=== PATIENT | female | born 1985 | race Caucasian/White ===

== ENCOUNTER → 2017-07-08 | Outpatient (REF) | payer OTHER ==
[~2017-07-08] MED LIST: ACET50TA PO; MUPI2OI TOP; SENN8.6T7 PO; [UNRECOGNIZED DRUG - CODE] PO; [UNRECOGNIZED DRUG - CODE] PO
== END ==
LOC: M LAB REF 16:54
PROVIDERS: ATTEND Obstetrics & Gynecology
DX: Z12.4 Encounter for screening for malignant neoplasm of cervix (principal); R87.612 Low grade squamous intraepithelial lesion on cytologic smear of cervix (LGSIL)

== ENCOUNTER → 2017-10-08 | Outpatient (CLI) | payer OTHER | LOC: M RAD 09:47 | DX: E04.1 Nontoxic single thyroid nodule (principal) | CPT/HCPCS: 76536 ==

== ENCOUNTER → 2018-03-28 | Outpatient (REF) | payer OTHER | LOC: M SFHCLERA 10:27 | DX: J00 Acute nasopharyngitis [common cold] (principal) ==

== ENCOUNTER → 2018-07-13 | Outpatient (REF) | payer OTHER ==
[2018-07-18 14:10] LABS: HPV LOW VOL RFLX Negative (Negative)
== END ==
LOC: M LAB REF 18:27
DX: Z12.4 Encounter for screening for malignant neoplasm of cervix (principal)

== ENCOUNTER → 2018-10-19 | Outpatient (REF) | payer OTHER | LOC: M LAB REF 18:20 | PROVIDERS: ATTEND Physician Assistant | DX: L05.01 Pilonidal cyst with abscess (principal) ==

== ENCOUNTER → 2019-02-09 | Outpatient (CLI) | payer OTHER ==
[~2019-02-09] MED LIST changes: -ACET50TA PO; +MAPA500T17 PO; +MUPI1OIN2 TOP; -MUPI2OI TOP
[2019-02-09 07:05] LABS: THYROID STIMULATING HORMONE 1.02 uIU/ML (0.358-3.740)
[2019-02-09 09:57] LABS: PROGESTERONE 29.13 NG/ML
== END ==
LOC: M LAB 06:19
PROVIDERS: ATTEND Obstetrics & Gynecology Reproductive Endocrinology
DX: E28.9 Ovarian dysfunction, unspecified (principal)

== ENCOUNTER → 2019-02-15 | Outpatient (CLI) | payer OTHER ==
[2019-02-15 10:12] LABS: HCG, SERUM QUANTITATIVE < 1.0 MIU/ML
[2019-02-15 10:20] LABS: PROGESTERONE 26.07 NG/ML
== END ==
LOC: M LAB 09:02
PROVIDERS: ATTEND Obstetrics & Gynecology Reproductive Endocrinology
DX: E28.9 Ovarian dysfunction, unspecified (principal)

== ENCOUNTER → 2019-04-19 | Outpatient (CLI) | payer OTHER ==
[2019-04-19 12:37] LABS: PROGESTERONE 42.17 NG/ML
== END ==
LOC: M LAB 11:08
PROVIDERS: ATTEND Obstetrics & Gynecology Reproductive Endocrinology
DX: E28.9 Ovarian dysfunction, unspecified (principal)

== ENCOUNTER → 2019-04-21 | Outpatient (CLI) | payer OTHER ==
[2019-04-21 07:28] LABS: THYROID STIMULATING HORMONE 0.794 uIU/ML (0.358-3.740)
[2019-04-21 11:27] LABS: ESTRADIOL 208.3 PG/ML; PROGESTERONE 30.22 NG/ML
== END ==
LOC: M LAB 06:23
PROVIDERS: ATTEND Obstetrics & Gynecology Reproductive Endocrinology
DX: Z32.01 Encounter for pregnancy test, result positive (principal)

== ENCOUNTER → 2019-06-07 | Outpatient (CLI) | payer OTHER ==
[2019-06-07 17:20] LABS: BASO % 0.3 % (0.0-1.0); EOS # 0.2 10^3/uL (0.0-0.5); EOS % 2.5 % (0.0-3.0); HEMOGLOBIN 13.3 g/dl (12.0-15.5); LYMPH # 1.8 10^3/uL (1.5-5.0); MEAN CORPUSCULAR HEMOGLOBIN 32.2 pg (27.0-33.0); MEAN CORPUSCULAR HGB CONC 34.1 g/dl (32.0-36.5); MEAN CORPUSCULAR VOLUME 94.4 fl (80.0-96.0); MONO # 0.8 10^3/uL (0.0-0.8); MONO % 7.7 % (0.0-5.0); NEUTROPHILS # 6.9 10^3/uL (1.5-8.5); NEUTROPHILS % 70.6 % (36.0-66.0); PLATELET COUNT, AUTOMATED 239 10^3/uL (150-450); RED BLOOD COUNT 4.13 10^6/uL (4.00-5.40); WHITE BLOOD COUNT 9.8 10^3/uL (4.0-10.0)
[2019-06-07 18:24] LABS: CHLAMYDIA DNA AMPLIFICATION NEGATIVE (NEGATIVE); GC DNA AMPLIFICATION NEGATIVE (NEGATIVE)
[2019-06-08 10:06] LABS: HIV 1&2 SCREEN CENTAUR NEGATIVE (NEGATIVE); RUBELLA IgG QUALITATIVE IMMUNE (IMMUNE)
[2019-06-09 10:18] LABS: HEPATITIS C VIRUS ABY INDEX 0.1 INDEX (<0.8)
== END ==
LOC: M LRY 11:35
PROVIDERS: ATTEND Obstetrics & Gynecology
DX: Z34.81 Encounter for supervision of other normal pregnancy, first trimester (principal); Z3A.10 10 weeks gestation of pregnancy

== ENCOUNTER → 2019-09-21 | Outpatient (CLI) | payer OTHER ==
[2019-09-21 17:50] LABS: HEMATOCRIT 35.5 % (36.0-47.0); HEMOGLOBIN 11.5 g/dl (12.0-15.5); MEAN CORPUSCULAR HEMOGLOBIN 31.6 pg (27.0-33.0); MEAN CORPUSCULAR HGB CONC 32.4 g/dl (32.0-36.5); MEAN CORPUSCULAR VOLUME 97.5 fl (80.0-96.0); PLATELET COUNT, AUTOMATED 231 10^3/uL (150-450); RED BLOOD COUNT 3.64 10^6/uL (4.00-5.40); WHITE BLOOD COUNT 12.5 10^3/uL (4.0-10.0)
== END ==
LOC: M LRY 10:08
PROVIDERS: ATTEND Obstetrics & Gynecology
DX: Z34.80 Encounter for supervision of other normal pregnancy, unspecified trimester (principal)

== ENCOUNTER → 2019-12-01 | Outpatient (REF) | payer OTHER | LOC: M SFHCWAGY 13:34 | PROVIDERS: ATTEND Advanced Practice Midwife | DX: Z36.85 Encounter for antenatal screening for Streptococcus B (principal); Z3A.36 36 weeks gestation of pregnancy ==

== ENCOUNTER 2019-12-29 09:31 | Inpatient (IN) | payer OTHER ==
[2019-12-29] VITALS (7 sets, daily range): BP systolic 116–131; BP diastolic 56–79
[~2019-12-29] VITALS: Ht 167.6 cm; Wt 87.1 kg
[2019-12-29] MEDS ORDERED: PRENTAB9 PO (10:07)
[2019-12-29] MEDS ORDERED: COLA100C5 PO (10:07)
--- NOTE | 2019-12-29 11:06 | HPE ---
DATE OF ADMISSION: 12/29/2019 HISTORY: Estelita is a 34-year-old, 1, para 0. She is at 40 and 4/7 weeks gestation with an expected date of confinement (EDC) of 12/25/2019 based on in vitro fertilization (IVF) transfer. She presents to labor and delivery today for induction of labor due to post-term . She denies any regular contractions, vaginal bleeding and leakage of fluid. The fetus has been active. Her care was initiated [facility] in the first trimester. course was complicated by a history of infertility with IVF transfer. OBSTETRICAL HISTORY: Primigravida. OBSTETRIC LABS: A+. Antibody screen negative. Pap normal. Rubella immune. VDRL nonreactive. Urine culture no growth. Hepatitis B surface antigen negative. HIV negative. Hepatitis C antibody negative. Gonorrhea and chlamydia negative. She did undergo panorama testing for aneuploidy which showed low risk for aneuploidy with a male fetus. Gestational diabetic screening normal at 101. Her GBS is negative. PAST MEDICAL HISTORY: History of abnormal Pap smear, polycystic ovarian syndrome and childhood varicella. SURGERIES: Nerve surgery on the left ring finger and pilonidal incision and drainage. FAMILY HISTORY: Hypertension. SOCIAL HISTORY: The patient is . She is a nonsmoker. She denies alcohol and drug use. She has no history of any sexually transmitted infections. She denies history of abuse - physical, sexual and emotional. CURRENT MEDICATIONS: Include vitamin. OBJECTIVE: Temperature 97.5, pulse 86, respirations 18, blood pressure (BP) is 131/79. She is alert and oriented x3, smiling and talkative, in no apparent discomfort. heart rate is 130 with moderate variability, positive accelerations, negative decelerations. There is an occasional contraction. Her abdomen is gravid, cephalic presentation. Estimated weight 7-1/2 pounds. Sterile Vaginal Exam: 1 cm dilated, 50% effaced, -3 station, posterior, moderate texture, scant pink show with the exam. ASSESSMENT: Interim at 40 and 4/7 weeks. heart rate category one. PLAN: Admit the patient to labor and delivery for induction of labor due to post dates per consult with Dr. Longoria. Routine labs. Out of bed ad troy. Regular diet at this time. I will start misoprostol 50 mcg by mouth every 4 hours for cervical ripening. Risks, benefits and alternatives have been reviewed with the patient and her . All of their questions have been answered. She has been verbally consented for emergency surgery and blood products if necessary. I do anticipate cervical ripening.
[2019-12-29] MEDS: miSOPROStol 50 MCG 1/2 TAB (S0191) PO SCH ×3 (11:19→21:20)
[2019-12-29 11:32] LABS: HEMATOCRIT 37.8 % (36.0-47.0); MEAN CORPUSCULAR HEMOGLOBIN 32.7 pg (27.0-33.0); MEAN CORPUSCULAR HGB CONC 34.4 g/dl (32.0-36.5); PLATELET COUNT, AUTOMATED 270 10^3/uL (150-450); RED BLOOD COUNT 3.98 10^6/uL (4.00-5.40); WHITE BLOOD COUNT 13.7 10^3/uL (4.0-10.0)
[2019-12-30] VITALS (49 sets, daily range): BP systolic 87–137; BP diastolic 50–85
[2019-12-30] MEDS: miSOPROStol 50 MCG 1/2 TAB (S0191) PO SCH (01:42)
[2019-12-30] MEDS: LR 1,000 ML IV SCH ×3 (08:02→18:56)
[2019-12-30] MEDS ORDERED: OXYTOCIN DRIP 30 UNITS in IV 1 EA IV SCH (08:15)
[2019-12-30] MEDS ORDERED: FENTANYL 2MCG/ML ROPIVACAINE 0.2% IN 0.9% NACL 100ML IVBAG As Ordered ONE (09:17)
[2019-12-30] MEDS: FENTANYL/ROPIVACAINE/NACL BAG 100 ML EPIDURAL SCH ×2 (10:57→21:15)
[2019-12-30] MEDS ORDERED: EPIDURAL COMMENT XX SCH (11:15)
[2019-12-30] MEDS ORDERED: REFRIGERATOR IV KEYS XX PRN (11:15)
[2019-12-30] MEDS ORDERED: EPIDURAL/PCA KEYS XX PRN (11:15)
[2019-12-30] MEDS ORDERED: ONDANSETRON 4MG/2ML VIAL (J2405 PER 1MG) IV PRN (11:15)
[2019-12-30] MEDS ORDERED: diphenhydrAMINE 50MG/ML VIAL (J1200) IV PRN (11:15)
[2019-12-30] MEDS ORDERED: ePHEDrine SULFATE 25 MG/5 ML(5MG/ML) SYRINGE IV PRN (11:15)
[2019-12-30] MEDS ORDERED: LACTATED RINGER'S 1000 ML IV PRN (11:15)
[2019-12-30] MEDS ORDERED: NALOXONE INJ 0.4MG/1ML VIAL (J2310 PER 1MG) IV PRN (11:15)
[2019-12-30] MEDS ORDERED: ceFAZolin SOD 2 GM in IV 1 EA IV ONE (23:45)
[2019-12-30] MEDS ORDERED: BICITRA 30ML SOLN UDC PO ONE (23:45)
[2019-12-30] MEDS ORDERED: AZITHROMYCIN INJ 500 MG, VIAL MATE ADAPTER 1 EACH in D5W 250 ML IV ONE (23:45)
[2019-12-31] VITALS (9 sets, daily range): BP systolic 93–122; BP diastolic 51–69
[2019-12-31] MEDS ORDERED: ONDANSETRON 4MG/2ML VIAL (J2405 PER 1MG) As Ordered ONE (00:33)
[2019-12-31] MEDS ORDERED: KETOROLAC 60 MG/2 ML VIAL (J1885 PER 15MG) As Ordered ONE (00:33)
[2019-12-31] MEDS ORDERED: OXYTOCIN 30 UNITS IN 0.9% NaCl 500ML IV BAG (J2590) As Ordered ONE ×2 (00:33→01:42)
[2019-12-31] MEDS ORDERED: LIDOCAINE 2% W/EPIN INJ 20ML **PRES FREE As Ordered ONE (00:33)
[2019-12-31] MEDS ORDERED: dexameTHASONE 4 MG/ML 1ML VIAL (J1100 PER 1MG) As Ordered ONE (00:33)
[2019-12-31] MEDS ORDERED: MORPHINE PRES-FREE INJ 10 MG/10 ML VIAL (J2274) As Ordered ONE (00:33)
[2019-12-31] MEDS ORDERED: diphenhydrAMINE 50MG/ML VIAL (J1200) IV PRN (00:35)
[2019-12-31] MEDS ORDERED: METOCLOPRAMIDE INJ 10MG/2ML VIAL (J2765 PER 1) IV PRN (00:35)
[2019-12-31] MEDS ORDERED: ONDANSETRON 4MG/2ML VIAL (J2405 PER 1MG) IV PRN ×3 (00:35→02:00)
[2019-12-31] MEDS ORDERED: NALOXONE INJ 0.4MG/1ML VIAL (J2310 PER 1MG) IV PRN ×2 (00:35)
[2019-12-31] MEDS ORDERED: METOCLOPRAMIDE INJ 10MG/2ML VIAL (J2765 PER 1) As Ordered ONE (00:39)
[2019-12-31] MEDS ORDERED: fentaNYL 100 MCG/2 ML INJECTION (J3010) As Ordered ONE (00:52)
[2019-12-31] MEDS ORDERED: PROMETHAZINE 25 MG TAB PO PRN (01:45)
[2019-12-31] MEDS ORDERED: ACETAMINOPHEN 500 MG TAB PO PRN (01:45)
[2019-12-31] MEDS ORDERED: ONDANSETRON 4 MG TAB (S0181) PO PRN (01:45)
[2019-12-31] MEDS ORDERED: LR 1,000 ML IV SCH ×2 (02:00)
[2019-12-31] MEDS ORDERED: MEASLES,MUMPS,RUBELLA VACCINE INJ (MMR-II) (90707) SC SCH (02:00)
[2019-12-31] MEDS ORDERED: RHOGAM 300 MCG (1500 IU) INJ (J2790) IM SCH (02:00)
[2019-12-31] MEDS ORDERED: OXYTOCIN DRIP 30 UNITS in IV 1 EA IV SCH (02:00)
[2019-12-31] MEDS ORDERED: fentaNYL 100 MCG/2 ML INJECTION (J3010) IV PRN (02:00)
[2019-12-31] MEDS: PERCOCET 5MG/325MG TAB PO PRN (03:42)
[2019-12-31] MEDS: KETOROLAC 30 MG/ML 1ML VIAL (J1885 PER 15MG) IV SCH ×3 (06:29→18:27)
[2019-12-31] MEDS: DOCUSATE SODIUM 100 MG CAP PO SCH ×2 (09:31→21:42)
[2019-12-31] MEDS: PRENATAL VITAMINS CHEWABLE TABLET PO SCH (09:31)
[2020-01-01] MEDS: PERCOCET 5MG/325MG TAB PO PRN ×5 (01:02→21:25)
[2020-01-01] MEDS: IBUPROFEN 800 MG TAB PO SCH ×3 (02:48→18:12)
[2020-01-01 02:50] VITALS: BP 103/55
[2020-01-01 06:00] VITALS: BP 102/81
[2020-01-01 06:53] LABS: HEMATOCRIT 26.6 % (36.0-47.0); HEMOGLOBIN 8.5 g/dl (12.0-15.5); MEAN CORPUSCULAR HEMOGLOBIN 30.6 pg (27.0-33.0); MEAN CORPUSCULAR VOLUME 95.7 fl (80.0-96.0); PLATELET COUNT, AUTOMATED 220 10^3/uL (150-450); RED BLOOD COUNT 2.78 10^6/uL (4.00-5.40); WHITE BLOOD COUNT 15.2 10^3/uL (4.0-10.0)
--- NOTE | 2020-01-01 07:48 | IPNPDOC ---
Text Note Date of Service The patient was seen on 01/01/20. NOTE PO #1 Feels well. Adequate pain management. Voiding. on demand VSS, afebrile, normotensive Breasts soft, nipples intact Fundus firm, NT Dressing intact Lochia rubra scant without odor PO #1 Routine care. Anticipate D/C in am VS,Fishbone, I+O VS, Fishbone, I+O Laboratory Tests 01/01/20 06:29 Vital Signs Date Time Temp Pulse Resp B/P (MAP) Pulse Ox O2 Delivery O2 Flow Rate FiO2 01/01/20 06:00 98.0 77 16 102/81 (88) 97 Room Air I&O- Last 24 Hours up to 6 AM 01/01/20 06:00 Output Total 2425 ml Balance -2425 ml Aury Piña CNM Jan 01, 2020 07:48
[2020-01-01] MEDS: PRENATAL VITAMINS CHEWABLE TABLET PO SCH (08:03)
[2020-01-01] MEDS: DOCUSATE SODIUM 100 MG CAP PO SCH ×2 (08:03→21:24)
[2020-01-01 18:00] VITALS: BP 108/68
[2020-01-02] MEDS: IBUPROFEN 800 MG TAB PO SCH ×2 (02:37→11:14)
[2020-01-02] MEDS: PRENATAL VITAMINS CHEWABLE TABLET PO SCH (08:19)
[2020-01-02] MEDS: DOCUSATE SODIUM 100 MG CAP PO SCH (08:19)
[2020-01-02] MEDS: PERCOCET 5MG/325MG TAB PO PRN ×2 (08:20→13:24)
[2020-01-02] MEDS ORDERED: IBUP80TA PO (12:15)
[2020-01-02] MEDS ORDERED: OXYC1TAB23 PO (12:15)
--- NOTE | 2020-01-04 11:10 | DSES ---
DATE OF ADMISSION: 12/29/2019 DATE OF DISCHARGE: 01/02/2020 A 34-year-old G1, P0 female at 40-6/7 weeks gestation presented for labor induction. She was admitted on 12/29/2019. HOSPITAL COURSE: The patient was admitted on 12/29/2019. She was labor-induced initially with misoprostol. She made slow progress in labor. She was eventually diagnosed with arrest of dilation at 4-5 cm. Decision was made to proceed with section. On 12/31/2019, she underwent primary elective section for an 8 pound 9 ounce male . There were no complications. Her postoperative course was unremarkable. She had adequate return of bladder and bowel function. Her postoperative hemoglobin was 8.5 g/dL She was deemed stable for discharge on postoperative day #2. ADMISSION DIAGNOSIS: , term. DISCHARGE DIAGNOSIS: Delivered. PROCEDURE: Primary elective section. DISPOSITION: Patient is to follow up with Dr. Longoria in two weeks. Instructions are reviewed.
== END 2020-01-02 13:30 | disposition home or self-care (01) | DRG 788 ==
LOC: M LDI 09:31 → M OBS 12-31 03:06
PROVIDERS: ADMIT Advanced Practice Midwife; ATTEND Advanced Practice Midwife
PROC: 3E0DXGC Introduction of Other Therapeutic Substance into Mouth and Pharynx, External Approach (ICD-10-PCS; 2019-12-29)
PROC: 10D00Z1 Extraction of Products of Conception, Low, Open Approach (ICD-10-PCS; principal; 2019-12-31 00:15)
DX: O48.0 Post-term pregnancy (principal); Z37.0 Single live birth; Z3A.40 40 weeks gestation of pregnancy; O62.0 Primary inadequate contractions

== ENCOUNTER → 2020-05-03 | Outpatient (REF) | payer OTHER ==
[~2020-05-03] MED LIST changes: +COLA100C5 PO; +IBUP80TA PO; +OXYC1TAB23 PO; +PRENTAB9 PO
== END ==
LOC: M SFHCWAGY 11:42
PROVIDERS: ATTEND Advanced Practice Midwife
DX: Z12.4 Encounter for screening for malignant neoplasm of cervix (principal)

== ENCOUNTER → 2020-08-28 | Outpatient (CLI) | payer SELFPAY | LOC: M LABSMTC 15:37 | PROVIDERS: ATTEND Pediatrics | DX: Z20.828 Contact with and (suspected) exposure to other viral communicable diseases (principal) ==

== ENCOUNTER → 2021-03-28 | Outpatient (REF) | LOC: M LAB 16:07 | PROVIDERS: ATTEND Nurse Practitioner Adult Health | DX: Z00.00 Encounter for general adult medical examination without abnormal findings (principal) ==

== ENCOUNTER → 2021-03-29 | Outpatient (CLI) | payer OTHER ==
[2021-03-29 08:22] LABS: BASO % 0.3 % (0.0-1.0); EOS # 0.2 10^3/uL (0.0-0.5); HEMATOCRIT 44.5 % (36.0-47.0); HEMOGLOBIN 14.6 g/dl (12.0-15.5); LYMPH % 25.5 % (24.0-44.0); MEAN CORPUSCULAR HEMOGLOBIN 31.5 pg (27.0-33.0); MEAN CORPUSCULAR HGB CONC 32.8 g/dl (32.0-36.5); MEAN CORPUSCULAR VOLUME 95.9 fl (80.0-96.0); MONO # 0.6 10^3/uL (0.0-0.8); MONO % 7.5 % (2.0-8.0); NEUTROPHILS % 64.3 % (36.0-66.0); PLATELET COUNT, AUTOMATED 211 10^3/uL (150-450); RED BLOOD COUNT 4.64 10^6/uL (4.00-5.40); WHITE BLOOD COUNT 7.8 10^3/uL (4.0-10.0)
[2021-03-29 08:54] LABS: ALBUMIN 4.3 GM/DL (3.2-5.2); ALT/SGPT 24 U/L (12-78); BILIRUBIN,TOTAL 0.5 MG/DL (0.2-1.0); BLOOD UREA NITROGEN 16 MG/DL (7-18); CALCIUM LEVEL 9.5 MG/DL (8.5-10.1); CARBON DIOXIDE LEVEL 27 MEQ/L (21-32); CHLORIDE LEVEL 105 MEQ/L (98-107); FREE T4 0.97 NG/DL (0.76-1.46); GLOMERULAR FILTRATION RATE > 60.0 (>60); GLUCOSE, FASTING 89 MG/DL (70-100); POTASSIUM SERUM 4.3 MEQ/L (3.5-5.1); SODIUM LEVEL 139 MEQ/L (136-145); THYROID STIMULATING HORMONE 0.823 uIU/ML (0.358-3.740); TOTAL PROTEIN 7.7 GM/DL (6.4-8.2)
[2021-03-29 11:16] LABS: TOTAL 25(OH) VITAMIN D 28.7 NG/ML (30.0-100.0)
== END ==
LOC: M LAB 07:48
PROVIDERS: ATTEND Physician Assistant
DX: Z13.29 Encounter for screening for other suspected endocrine disorder (principal)

== ENCOUNTER → 2021-08-06 | Outpatient (CLI) | payer BC ==
[2021-08-06 11:00] LABS: ESTRADIOL 144.2 PG/ML; PROGESTERONE 38.81 NG/ML
== END ==
LOC: M LAB 06:19
PROVIDERS: ATTEND Obstetrics & Gynecology Reproductive Endocrinology
DX: Z31.49 Encounter for other procreative investigation and testing (principal)

== ENCOUNTER → 2021-08-10 | Outpatient (CLI) | payer BC ==
[2021-08-10 11:20] LABS: PROGESTERONE 32.46 NG/ML
== END ==
LOC: M LAB 06:15
PROVIDERS: ATTEND Obstetrics & Gynecology Reproductive Endocrinology
DX: Z32.00 Encounter for pregnancy test, result unknown (principal)

== ENCOUNTER → 2021-08-13 | Outpatient (CLI) | payer BC ==
[2021-08-13 12:11] LABS: ESTRADIOL 162.1 PG/ML; PROGESTERONE 46.62 NG/ML; THYROID STIMULATING HORMONE 0.286 uIU/ML (0.358-3.740)
== END ==
LOC: M LAB 11:00
PROVIDERS: ATTEND Obstetrics & Gynecology Reproductive Endocrinology
DX: Z32.01 Encounter for pregnancy test, result positive (principal)

== ENCOUNTER → 2021-08-15 | Outpatient (CLI) | payer BC ==
[2021-08-15 09:53] LABS: ESTRADIOL 67.6 PG/ML; PROGESTERONE 6.05 NG/ML
== END ==
LOC: M LAB 07:12
PROVIDERS: ATTEND Obstetrics & Gynecology Reproductive Endocrinology
DX: O02.81 Inappropriate change in quantitative human chorionic gonadotropin (hCG) in early pregnancy (principal); Z3A.00 Weeks of gestation of pregnancy not specified

== ENCOUNTER → 2022-03-07 | Outpatient (CLI) | payer BC ==
[2022-03-07 17:09] LABS: BASO % 0.4 % (0.0-1.0); EOS # 0.2 10^3/uL (0.0-0.5); EOS % 2.8 % (0.0-3.0); HEMATOCRIT 40.3 % (36.0-47.0); HEMOGLOBIN 13.6 g/dl (12.0-15.5); LYMPH # 2.3 10^3/uL (1.5-5.0); MEAN CORPUSCULAR HGB CONC 33.7 g/dl (32.0-36.5); MEAN CORPUSCULAR VOLUME 97.8 fl (80.0-96.0); MONO # 0.6 10^3/uL (0.0-0.8); MONO % 7.9 % (2.0-8.0); NEUTROPHILS # 4.9 10^3/uL (1.5-8.5); NEUTROPHILS % 60.7 % (36.0-66.0); PLATELET COUNT, AUTOMATED 211 10^3/uL (150-450); RED BLOOD COUNT 4.12 10^6/uL (4.00-5.40); WHITE BLOOD COUNT 8.1 10^3/uL (4.0-10.0)
[2022-03-07 18:14] LABS: ERYTHROCYTE SEDIMENTATION RATE 12 mm/hr (0-20)
== END ==
LOC: M PLALAB 14:57
PROVIDERS: ATTEND Nurse Practitioner Adult Health
DX: D48.61 Neoplasm of uncertain behavior of right breast (principal)

== ENCOUNTER → 2022-03-19 | Outpatient (CLI) | payer BC | LOC: M WHC 12:19 | PROVIDERS: ATTEND Nurse Practitioner Adult Health | DX: D48.61 Neoplasm of uncertain behavior of right breast (principal) | CPT/HCPCS: 76642; 77066; G0279 ==

== ENCOUNTER → 2022-04-05 | Outpatient (CLI) | payer BC ==
[2022-04-05 07:48] LABS: HCG, SERUM QUANTITATIVE < 1.0 MIU/ML
[2022-04-05 09:54] LABS: PROGESTERONE 31.22 NG/ML
== END ==
LOC: M LAB 06:52
PROVIDERS: ATTEND Obstetrics & Gynecology Reproductive Endocrinology
DX: Z32.00 Encounter for pregnancy test, result unknown (principal)

== ENCOUNTER → 2022-04-10 | Outpatient (CLI) | payer BC ==
[~2022-04-10] MED LIST changes: +ACET325C5 PO
[2022-04-10 09:59] VITALS: BP 104/62
== END ==
LOC: M WHCPRO 08:34
PROVIDERS: ATTEND Surgery
DX: R92.8 Other abnormal and inconclusive findings on diagnostic imaging of breast (principal); N63.13 Unspecified lump in the right breast, lower outer quadrant
CPT/HCPCS: 19083; 77065; 88305; G0279

== ENCOUNTER → 2022-04-30 | Outpatient (CLI) | payer BC | LOC: M RAD 16:02 | PROVIDERS: ATTEND Physician Assistant | DX: Z01.818 Encounter for other preprocedural examination (principal) ==

== ENCOUNTER → 2022-05-01 | Outpatient (CLI) | payer BC ==
[2022-05-01 06:56] LABS: BASO % 0.5 % (0.0-1.0); EOS # 0.1 10^3/uL (0.0-0.5); EOS % 1.7 % (0.0-3.0); HEMATOCRIT 41.6 % (36.0-47.0); HEMOGLOBIN 13.9 g/dl (12.0-15.5); LYMPH # 1.9 10^3/uL (1.5-5.0); LYMPH % 29.6 % (24.0-44.0); MEAN CORPUSCULAR HEMOGLOBIN 31.7 pg (27.0-33.0); MEAN CORPUSCULAR HGB CONC 33.4 g/dl (32.0-36.5); MONO # 0.6 10^3/uL (0.0-0.8); NEUTROPHILS # 3.8 10^3/uL (1.5-8.5); NEUTROPHILS % 58.9 % (36.0-66.0); PLATELET COUNT, AUTOMATED 218 10^3/uL (150-450); RED BLOOD COUNT 4.38 10^6/uL (4.00-5.40); WHITE BLOOD COUNT 6.5 10^3/uL (4.0-10.0)
[2022-05-01 07:36] LABS: ALBUMIN 3.8 GM/DL (3.2-5.2); ALT/SGPT 21 U/L (12-78); BILIRUBIN,TOTAL 0.3 MG/DL (0.2-1.0); BLOOD UREA NITROGEN 19 MG/DL (7-18); CALCIUM LEVEL 8.9 MG/DL (8.5-10.1); CARBON DIOXIDE LEVEL 26 MEQ/L (21-32); CHLORIDE LEVEL 107 MEQ/L (98-107); CHOLESTEROL LEVEL 225 MG/DL (<200); CHOLESTEROL RISK RATIO 3.082 (<5); CREATININE FOR GFR 0.73 MG/DL (0.55-1.30); FREE T4 0.95 NG/DL (0.76-1.46); GLOMERULAR FILTRATION RATE > 60.0 (>60); GLUCOSE, FASTING 90 MG/DL (70-100); HDL CHOLESTEROL 73 MG/DL (>40); LDL CHOLESTEROL 136 MG/DL (<100); NON-HDL-C 152 MG/DL; POTASSIUM SERUM 3.9 MEQ/L (3.5-5.1); SODIUM LEVEL 139 MEQ/L (136-145); THYROID STIMULATING HORMONE 0.636 uIU/ML (0.358-3.740); TRIGLYCERIDES LEVEL 79 MG/DL (<150)
[2022-05-01 08:37] LABS: TOTAL 25(OH) VITAMIN D 35.8 NG/ML (30.0-100.0)
== END ==
LOC: M LAB 06:30
PROVIDERS: ATTEND Family Medicine
DX: Z13.220 Encounter for screening for lipoid disorders (principal); Z13.29 Encounter for screening for other suspected endocrine disorder

== ENCOUNTER → 2022-05-12 | Outpatient (CLI) | payer BC, OTHER ==
[~2022-05-12] MED LIST changes: +PRENTAB53 PO
== END ==
LOC: M LABSMTC 11:36
PROVIDERS: ATTEND Anesthesiology
DX: Z01.812 Encounter for preprocedural laboratory examination (principal); Z20.822 Contact with and (suspected) exposure to COVID-19

== ENCOUNTER → 2022-06-06 | Outpatient (CLI) | payer BC ==
[~2022-06-06] MED LIST changes: +ERGO500029 PO
== END ==
LOC: M LABSMTC 10:52
PROVIDERS: ATTEND Anesthesiology
DX: Z01.818 Encounter for other preprocedural examination (principal); Z11.52 Encounter for screening for COVID-19

== ENCOUNTER 2022-06-11 06:04 | Day surgery (SDC) | payer BC ==
[~2022-06-11] VITALS: Ht 167.6 cm; Wt 67.6 kg
[~2022-06-11 06:04] MED LIST changes: +HEPARIN SOD (PORCINE) 5000UNITS/ML 1ML VIAL/SYRINGE SQ ONE; +ceFAZolin SOD 2 GM in IV 1 EA IV ONE
[2022-06-11] MEDS ORDERED: LR 1,000 ML IV SCH ×2 (07:15→09:30)
[2022-06-11] MEDS ORDERED: BUPIVACAINE HCL 0.25% 30ML VIAL As Ordered ONE (07:21)
[2022-06-11] MEDS ORDERED: LIDOCAINE 1% SDV 30ML VIAL As Ordered ONE (07:21)
[2022-06-11] MEDS ORDERED: fentaNYL 100 MCG/2 ML INJECTION As Ordered ONE ×2 (08:02→08:11)
[2022-06-11] MEDS ORDERED: MIDAZOLAM INJ 2MG/2ML VIAL (J2250 PER 1MG) As Ordered ONE (08:02)
[2022-06-11] MEDS ORDERED: ROCURONIUM BROMIDE 50 MG/5 ML VIAL As Ordered ONE (08:02)
[2022-06-11] MEDS ORDERED: propofoL 200 MG/20 ML VIAL As Ordered ONE (08:02)
[2022-06-11] MEDS ORDERED: ACETAMINOPHEN 1000MG 100ML IV BTL (OFIRMEV) (J0131 PER 10MG) As Ordered ONE (08:02)
[2022-06-11] MEDS ORDERED: METOCLOPRAMIDE INJ 10MG/2ML VIAL (J2765 PER 1) As Ordered ONE (08:02)
[2022-06-11] MEDS ORDERED: LIDOCAINE 2% 100MG/5ML SDV (FOR ANES.) As Ordered ONE (08:02)
[2022-06-11] MEDS ORDERED: dexameTHASONE 4 MG/ML 1ML VIAL (J1100 PER 1MG) As Ordered ONE (08:02)
[2022-06-11] MEDS ORDERED: SUGAMMADEX SODIUM 500 MG/5 ML VIAL (BRIDION) As Ordered ONE (08:02)
[2022-06-11] MEDS ORDERED: ONDANSETRON 4MG 2ML VIAL As Ordered ONE (08:02)
[2022-06-11] MEDS ORDERED: SEVOFLURANE INHAL SOLN 250 ML BTL As Ordered ONE (08:09)
[2022-06-11] MEDS ORDERED: ULTR50TA8 PO (09:27)
[2022-06-11] MEDS ORDERED: fentaNYL 100 MCG/2 ML INJECTION IV PRN (09:30)
[2022-06-11] MEDS ORDERED: oxyCODONE 5MG TAB PO PRN (09:30)
[2022-06-11] MEDS ORDERED: ONDANSETRON 4MG 2ML VIAL IV PRN (09:30)
[2022-06-11 09:50] VITALS: BP 117/66
== END 2022-06-11 10:15 | disposition home or self-care (01) ==
LOC: M SDC 06:04
PROVIDERS: ATTEND Surgery
DX: N60.21 Fibroadenosis of right breast (principal); E78.5 Hyperlipidemia, unspecified; E28.2 Polycystic ovarian syndrome; Z79.899 Other long term (current) drug therapy; Z86.16 Personal history of COVID-19; Z88.2 Allergy status to sulfonamides
CPT/HCPCS: 19120; 36415; 81025; 86850; 86900; 86901; 88307; J0131; J0690; J1100; J1644; J2250; J2405; J2765; J3010

== ENCOUNTER → 2022-08-27 | Outpatient (CLI) | payer BC ==
[~2022-08-27] MED LIST changes: -HEPARIN SOD (PORCINE) 5000UNITS/ML 1ML VIAL/SYRINGE SQ ONE; +ULTR50TA8 PO; -ceFAZolin SOD 2 GM in IV 1 EA IV ONE
[2022-08-27 14:20] LABS: ESTRADIOL 218.1 PG/ML; PROGESTERONE 26.44 NG/ML
== END ==
LOC: M LAB 13:16
PROVIDERS: ATTEND Obstetrics & Gynecology Reproductive Endocrinology
DX: Z31.49 Encounter for other procreative investigation and testing (principal)

== ENCOUNTER → 2022-09-02 | Outpatient (CLI) | payer BC ==
[2022-09-02 07:03] LABS: HCG, SERUM QUANTITATIVE 3.7 MIU/ML (<4.2)
[2022-09-02 07:07] LABS: PROGESTERONE 28.6 NG/ML
== END ==
LOC: M LAB 06:08
PROVIDERS: ATTEND Obstetrics & Gynecology Reproductive Endocrinology
DX: Z32.00 Encounter for pregnancy test, result unknown (principal)

== ENCOUNTER → 2022-11-29 | Outpatient (CLI) | payer BC ==
[2022-11-29 07:50] LABS: ESTRADIOL 1071.2 PG/ML
[2022-11-29 07:51] LABS: PROGESTERONE 35.45 NG/ML
== END ==
LOC: M LAB 06:50
PROVIDERS: ATTEND Obstetrics & Gynecology Reproductive Endocrinology
DX: Z31.49 Encounter for other procreative investigation and testing (principal)

== ENCOUNTER → 2022-12-04 | Outpatient (CLI) | payer BC ==
[2022-12-04 07:45] LABS: HCG, SERUM QUANTITATIVE < 2.6 MIU/ML (<4.2)
[2022-12-04 07:50] LABS: PROGESTERONE 34.52 NG/ML
== END ==
LOC: M LAB 06:55
PROVIDERS: ATTEND Obstetrics & Gynecology Reproductive Endocrinology
DX: Z32.00 Encounter for pregnancy test, result unknown (principal)

== ENCOUNTER → 2023-04-18 | Outpatient (CLI) | payer BC ==
[2023-04-18 16:51] LABS: ERYTHROCYTE SEDIMENTATION RATE 14 mm/hr (0-20)
[2023-04-18 16:56] LABS: BASO % 0.4 % (0.0-1.0); EOS # 0.2 10^3/uL (0.0-0.5); EOS % 1.8 % (0.0-3.0); HEMATOCRIT 37.6 % (36.0-47.0); HEMOGLOBIN 12.2 g/dl (12.0-15.5); LYMPH # 2.4 10^3/uL (1.5-5.0); MEAN CORPUSCULAR HEMOGLOBIN 29.3 pg (27.0-33.0); MEAN CORPUSCULAR HGB CONC 32.4 g/dl (32.0-36.5); MEAN CORPUSCULAR VOLUME 90.4 fl (80.0-96.0); MONO # 0.7 10^3/uL (0.0-0.8); NEUTROPHILS % 60.4 % (36.0-66.0); PLATELET COUNT, AUTOMATED 297 10^3/uL (150-450); RED BLOOD COUNT 4.16 10^6/uL (4.00-5.40); WHITE BLOOD COUNT 8.2 10^3/uL (4.0-10.0)
[2023-04-18 17:11] LABS: CORTISOL BASELINE 2.5 UG/DL (4.3-22.4)
[2023-04-18 17:14] LABS: ALBUMIN 4.2 G/DL (3.2-5.2); ALKALINE PHOSPHATASE 48 U/L (46-116); ALT/SGPT 14 U/L (7.0-40); AST/SGOT < 8 U/L (<34); BILIRUBIN,TOTAL 0.3 MG/DL (0.3-1.2); BLOOD UREA NITROGEN 12 MG/DL (9-23); C REACTIVE PROTEIN QUANTITATIV < 0.40 MG/DL (<1.0); CALCIUM LEVEL 9.7 MG/DL (8.5-10.1); CARBON DIOXIDE LEVEL 26 MMOL/L (20-31); CHLORIDE LEVEL 103 MMOL/L (98-107); CREATININE FOR GFR 0.69 MG/DL (0.55-1.30); GLOMERULAR FILTRATION RATE > 60.0 (>60); GLUCOSE, FASTING 94 MG/DL (60-100); IRON (FE) 25 UG/DL (50-170); PERCENT SATURATION 6.1 % (13.2-45.0); SODIUM LEVEL 139 MMOL/L (136-145); TOTAL IRON BINDING CAPACITY 411 UG/DL (250-425); TOTAL PROTEIN 7.1 G/DL (5.7-8.2)
[2023-04-18 17:15] LABS: THYROID STIMULATING HORMONE 0.828 uIU/ML (0.55-4.78)
[2023-04-18 17:16] LABS: FERRITIN 7.9 NG/ML (7.3-270.7); FOLATE 23.9 NG/ML (>5.4); VITAMIN B12 LEVEL 580 PG/ML (211-911)
== END ==
LOC: M LAB 16:10
PROVIDERS: ATTEND Family Medicine
DX: L65.9 Nonscarring hair loss, unspecified (principal)

== ENCOUNTER → 2023-05-02 | Outpatient (CLI) | payer BC ==
[2023-05-02 08:56] LABS: PROGESTERONE 57.18 NG/ML
== END ==
LOC: M LAB 07:39
PROVIDERS: ATTEND Obstetrics & Gynecology Reproductive Endocrinology
DX: Z31.49 Encounter for other procreative investigation and testing (principal)

== ENCOUNTER → 2023-05-07 | Outpatient (CLI) | payer BC ==
[2023-05-07 11:56] LABS: HCG, SERUM QUANTITATIVE 5.8 MIU/ML (<4.2)
[2023-05-07 12:00] LABS: ESTRADIOL 279.2 PG/ML
[2023-05-07 12:02] LABS: PROGESTERONE 16.42 NG/ML
== END ==
LOC: M LAB 11:03
PROVIDERS: ATTEND Obstetrics & Gynecology Reproductive Endocrinology
DX: Z32.00 Encounter for pregnancy test, result unknown (principal)

== ENCOUNTER → 2023-05-09 | Outpatient (CLI) | payer BC ==
[2023-05-09 12:45] LABS: HCG, SERUM QUANTITATIVE 5.7 MIU/ML (<4.2)
[2023-05-09 12:49] LABS: PROGESTERONE 38.48 NG/ML; THYROID STIMULATING HORMONE 0.475 uIU/ML (0.55-4.78)
[2023-05-09 12:50] LABS: ESTRADIOL 208.3 PG/ML
== END ==
LOC: M LAB 11:52
PROVIDERS: ATTEND Obstetrics & Gynecology Reproductive Endocrinology
DX: Z32.01 Encounter for pregnancy test, result positive (principal)

== ENCOUNTER → 2023-06-03 | Outpatient (CLI) | payer BC ==
[2023-06-03 08:10] LABS: FREE T4 1.15 NG/DL (0.89-1.76); THYROID STIMULATING HORMONE 0.866 uIU/ML (0.55-4.78)
[2023-06-03 08:13] LABS: THYROID PEROXIDASE ANTIBODY < 28.0 U/ML (<60.0)
[2023-06-04 18:08] LABS: TESTOSTERONE FREE (DIRECT) 0.7 pg/mL (0.0-4.2); THRYOGLOBULIN ANTIBODIES (ATA) < 1.0 IU/mL (0.0-0.9); THYROGLOBULIN QUANTITATIVE 13.8 ng/mL (1.5-38.5)
== END ==
LOC: M LAB 07:19
PROVIDERS: ATTEND Physician Assistant
DX: N97.9 Female infertility, unspecified (principal)

== ENCOUNTER → 2023-07-04 | Outpatient (CLI) | payer BC ==
[2023-07-04 07:12] LABS: ESTRADIOL 232.2 PG/ML; PROGESTERONE 53.15 NG/ML
== END ==
LOC: M LAB 05:58
PROVIDERS: ATTEND Obstetrics & Gynecology Reproductive Endocrinology
DX: Z31.49 Encounter for other procreative investigation and testing (principal)

== ENCOUNTER → 2023-07-09 | Outpatient (CLI) | payer BC ==
[2023-07-09 06:43] LABS: HCG, SERUM QUANTITATIVE 188.7 MIU/ML (<4.2)
[2023-07-09 06:48] LABS: PROGESTERONE 54.14 NG/ML
== END ==
LOC: M LAB 05:59
PROVIDERS: ATTEND Obstetrics & Gynecology Reproductive Endocrinology
DX: Z32.00 Encounter for pregnancy test, result unknown (principal)

== ENCOUNTER → 2023-10-16 | Outpatient (CLI) | payer BC ==
[2023-10-16 17:40] LABS: HEMATOCRIT 36.6 % (36.0-47.0); HEMOGLOBIN 12.5 g/dl (12.0-15.5); MEAN CORPUSCULAR HGB CONC 34.2 g/dl (32.0-36.5); MEAN CORPUSCULAR VOLUME 93.6 fl (80.0-96.0); PLATELET COUNT, AUTOMATED 202 10^3/uL (150-450); RED BLOOD COUNT 3.91 10^6/uL (4.00-5.40); WHITE BLOOD COUNT 11.2 10^3/uL (4.0-10.0)
[2023-10-16 18:06] LABS: FERRITIN 26.5 NG/ML (7.3-270.7)
[2023-10-16 18:07] LABS: IRON (FE) 97 UG/DL (50-170)
[2023-10-16 18:31] LABS: HIV 1&2 SCREEN NEGATIVE (NEGATIVE)
[2023-10-16 18:40] LABS: HEPATITIS C VIRUS ABY INDEX 0.02 INDEX (<0.8)
== END ==
LOC: M PLALAB 15:11
PROVIDERS: ATTEND Advanced Practice Midwife
DX: Z34.82 Encounter for supervision of other normal pregnancy, second trimester (principal)

== ENCOUNTER → 2023-10-16 | Outpatient (REF) | payer BC | LOC: M PLALAB 14:56 | PROVIDERS: ATTEND Advanced Practice Midwife | DX: Z34.82 Encounter for supervision of other normal pregnancy, second trimester (principal) ==

== ENCOUNTER → 2023-10-24 | Outpatient (CLI) | payer BC | LOC: M RAD 15:02 | PROVIDERS: ATTEND Advanced Practice Midwife | DX: Z34.82 Encounter for supervision of other normal pregnancy, second trimester (principal); Z3A.19 19 weeks gestation of pregnancy ==

== ENCOUNTER → 2023-11-13 | Outpatient (CLI) | payer BC | LOC: M WHC 14:44 | PROVIDERS: ATTEND Advanced Practice Midwife | DX: O09.812 Supervision of pregnancy resulting from assisted reproductive technology, second trimester (principal); Z3A.22 22 weeks gestation of pregnancy ==

== ENCOUNTER → 2023-12-05 | Outpatient (CLI) | payer BC | LOC: M WHC 15:13 | PROVIDERS: ATTEND Advanced Practice Midwife | DX: Z34.92 Encounter for supervision of normal pregnancy, unspecified, second trimester (principal) ==

== ENCOUNTER → 2023-12-15 | Outpatient (CLI) | payer BC ==
[2023-12-15 13:59] LABS: HEMATOCRIT 36.6 % (36.0-47.0); HEMOGLOBIN 12.3 g/dl (12.0-15.5); MEAN CORPUSCULAR HEMOGLOBIN 32.2 pg (27.0-33.0); MEAN CORPUSCULAR HGB CONC 33.6 g/dl (32.0-36.5); MEAN CORPUSCULAR VOLUME 95.8 fl (80.0-96.0); PLATELET COUNT, AUTOMATED 201 10^3/uL (150-450); RED BLOOD COUNT 3.82 10^6/uL (4.00-5.40); WHITE BLOOD COUNT 9.4 10^3/uL (4.0-10.0)
[2023-12-15 15:36] LABS: GC DNA AMPLIFICATION NEGATIVE (NEGATIVE)
== END ==
LOC: M PLALAB 09:38
PROVIDERS: ATTEND Advanced Practice Midwife
DX: Z34.92 Encounter for supervision of normal pregnancy, unspecified, second trimester (principal)

== ENCOUNTER → 2024-02-20 | Outpatient (REF) | payer BC | LOC: M SFHCWAGY 12:07 | PROVIDERS: ATTEND Specialist | DX: Z34.83 Encounter for supervision of other normal pregnancy, third trimester (principal) ==

== ENCOUNTER → 2024-02-24 | Outpatient (CLI) | payer BC | LOC: M RAD 06:56 | PROVIDERS: ATTEND Obstetrics & Gynecology | DX: Z36.89 Encounter for other specified antenatal screening (principal); Z3A.37 37 weeks gestation of pregnancy ==

== ENCOUNTER 2024-03-19 01:30 | Inpatient (IN) | payer BC ==
[~2024-03-19] VITALS: Ht 167.6 cm; Wt 90.1 kg
[2024-03-19] VITALS (45 sets, daily range): BP systolic 93–134; BP diastolic 51–80; TEMP 98.4; O2SAT 96–100
[~2024-03-19 01:30] MED LIST changes: +MAGN400C2 PO; +VITA200031 PO
[2024-03-19] MEDS ORDERED: HOME MED LIST COMPLETE! XX SCH (01:45)
[2024-03-19 02:50] LABS: HEMOGLOBIN 12.7 g/dl (12.0-15.5); MEAN CORPUSCULAR HEMOGLOBIN 32.3 pg (27.0-33.0); MEAN CORPUSCULAR HGB CONC 34.3 g/dl (32.0-36.5); MEAN CORPUSCULAR VOLUME 94.1 fl (80.0-96.0); PLATELET COUNT, AUTOMATED 141 10^3/uL (150-450); RED BLOOD COUNT 3.93 10^6/uL (4.00-5.40); WHITE BLOOD COUNT 11.7 10^3/uL (4.0-10.0)
[2024-03-19 04:01] LABS: HEPATITIS C VIRUS ABY INDEX < 0.02 INDEX (<0.8)
[2024-03-19] MEDS ORDERED: LR 500 ML IV PRN (04:10)
[2024-03-19] MEDS ORDERED: ePHEDrine SULFATE 25 MG/5 ML(5MG/ML) SYRINGE IVP PRN (04:10)
[2024-03-19] MEDS ORDERED: NALOXONE INJ 0.4MG/1ML VIAL IV PRN ×3 (04:10→19:00)
[2024-03-19] MEDS ORDERED: ONDANSETRON 4MG 2ML VIAL IV PRN ×2 (04:10→19:00)
[2024-03-19] MEDS ORDERED: EPIDURAL/PCA KEYS XX PRN (04:10)
[2024-03-19] MEDS ORDERED: diphenhydrAMINE 50MG/ML VIAL IV PRN ×2 (04:10→19:00)
[2024-03-19] MEDS: FENTANYL/ROPIVACAINE/NACL BAG 100 ML EPIDURAL SCH (04:28)
[2024-03-19] MEDS: LR 1,000 ML IV SCH ×2 (05:53→11:13)
[2024-03-19] MEDS: LR 1,000 ML IV ONE (05:53)
[2024-03-19] MEDS: OXYTOCIN DRIP 30 UNITS in IV 1 EA IV SCH ×2 (11:14→18:06)
[2024-03-19] MEDS: BICITRA 30ML SOLN UDC PO ONE (15:52)
[2024-03-19] MEDS: AZITHROMYCIN INJ 500 MG, VIAL MATE ADAPTER 1 EACH in NS 250 ML IV ONE (15:52)
[2024-03-19] MEDS: ceFAZolin SOD 2 GM in IV 1 EA IV ONE (15:52)
[2024-03-19] MEDS ORDERED: RHO(D) IMMUNE GLOBULIN/MALTOSE 500MCG(2500IU)/2.2ML VIAL (WINRHO) IM SCH (16:15)
[2024-03-19] MEDS ORDERED: ANUSOL HC CREAM 30GM TOP PRN (16:15)
[2024-03-19] MEDS ORDERED: MORPHINE PRES-FREE INJ 10 MG/10 ML VIAL As Ordered ONE (16:15)
[2024-03-19] MEDS ORDERED: MIDAZOLAM INJ 2MG/2ML VIAL As Ordered ONE (16:47)
[2024-03-19] MEDS ORDERED: OXYTOCIN 30UNITS IN 0.9% NaCl 500ML IV BAG As Ordered ONE (16:47)
[2024-03-19] MEDS ORDERED: TRANEXAMIC ACID 100 MG/ML 10ML VIAL As Ordered ONE (16:49)
[2024-03-19 17:10] LABS: CORD GAS ABE V -3.7; CORD GAS HCO3 V 21.3 MMOL/L; CORD GAS O2 SAT V 73.1 %; CORD GAS PCO2 V 38.6 mmHg; CORD GAS PH V 7.359 UNITS; CORD GAS PO2 V 29.3 mmHg; CORD GAS SBC V 20.8 MMOL/L; CORD GAS TCO2 V 22.5 MMOL/L
[2024-03-19 17:12] LABS: CORD GAS ABE A -1.8; CORD GAS HCO3 A 25.9 MMOL/L; CORD GAS O2 SAT A 48.4 %; CORD GAS PCO2 A 55.4 mmHg; CORD GAS PH A 7.288 UNITS; CORD GAS PO2 A 20.9 mmHg; CORD GAS SBC A 21.7 MMOL/L; CORD GAS TCO2 A 27.6 MMOL/L
[2024-03-19] MEDS ORDERED: METOCLOPRAMIDE INJ 10MG/2ML VIAL IV PRN (19:00)
[2024-03-19] MEDS ORDERED: **NOTE PATIENT COMMENT** MISC XX SCH (19:00)
[2024-03-19] MEDS ORDERED: HYDROMORPHONE HCL 0.5 MG/ 0.5 ML SYRINGE IV PRN (19:00)
[2024-03-19] MEDS ORDERED: MEPERIDINE 25 MG/ML 1ML VIAL IV PRN (19:00)
[2024-03-19] MEDS ORDERED: oxyCODONE 5MG TAB PO PRN (19:00)
[2024-03-19] MEDS ORDERED: fentaNYL 100 MCG/2 ML INJECTION IV PRN (19:00)
[2024-03-19] MEDS: ACETAMINOPHEN 500 MG TAB PO PRN (20:31)
[2024-03-19] MEDS: DOCUSATE SODIUM 100MG CAPSULE PO SCH (20:31)
[2024-03-19] MEDS: SLF 3 ML SYR IV SCH (20:32)
[2024-03-19] MEDS: KETOROLAC 30 MG/ML 1ML VIAL IV SCH (23:29)
[2024-03-20 02:09] VITALS: BP 94/55; O2SAT 97
[2024-03-20 05:41] VITALS: BP 92/50; O2SAT 97
[2024-03-20 07:48] LABS: HEMATOCRIT 28.2 % (36.0-47.0); MEAN CORPUSCULAR HEMOGLOBIN 32.8 pg (27.0-33.0); MEAN CORPUSCULAR VOLUME 96.2 fl (80.0-96.0); PLATELET COUNT, AUTOMATED 113 10^3/uL (150-450); RED BLOOD COUNT 2.93 10^6/uL (4.00-5.40); WHITE BLOOD COUNT 12.6 10^3/uL (4.0-10.0)
[2024-03-20 07:49] LABS: HEMOGLOBIN 9.6 g/dl (12.0-15.5)
[2024-03-20] MEDS: PRENATAL VITAMINS CHEWABLE TABLET PO SCH (09:23)
[2024-03-20 14:00] VITALS: BP 98/59; O2SAT 99
[2024-03-20] MEDS: oxyCODONE 5MG TAB PO PRN ×2 (15:41→23:45)
[2024-03-20] MEDS: SIMETHICONE 80MG CHEW TAB PO PRN (17:25)
[2024-03-20] MEDS: MOM 30ML SUSPENSION UDC PO PRN (17:28)
[2024-03-20 18:00] VITALS: BP 114/70; O2SAT 97
[2024-03-20] MEDS: IBUPROFEN 800 MG TAB PO SCH (19:42)
[2024-03-20 23:00] VITALS: BP 103/55; O2SAT 96
[2024-03-21 02:00] VITALS: BP 89/52; O2SAT 97
[2024-03-21 06:00] VITALS: BP 109/72; O2SAT 97
[2024-03-21] MEDS: MEASLES,MUMPS,RUBELLA VACCINE INJ (MMR-II) SC.IMMUN ONE (08:16)
[2024-03-21 10:00] VITALS: BP 103/60; O2SAT 97
== END 2024-03-21 13:08 | disposition home or self-care (01) | DRG 540 ==
LOC: M LDO 01:30 → M LDI 01:55 → M OBS 19:18
PROVIDERS: ADMIT Obstetrics & Gynecology; ATTEND Obstetrics & Gynecology
PROC: 10D00Z1 Extraction of Products of Conception, Low, Open Approach (ICD-10-PCS; principal; 2024-03-19 15:57)
DX: O48.0 Post-term pregnancy (principal); O36.60X0 Maternal care for excessive fetal growth, unspecified trimester, not applicable or unspecified; Z37.0 Single live birth; Z3A.40 40 weeks gestation of pregnancy; O09.523 Supervision of elderly multigravida, third trimester; Z88.8 Allergy status to other drugs, medicaments and biological substances; O34.211 Maternal care for low transverse scar from previous cesarean delivery; O62.0 Primary inadequate contractions

== ENCOUNTER → 2025-04-04 | Outpatient (CLI) | payer BC ==
[2025-04-04 08:32] LABS: BASO # 0.0 10^3/uL (0.0-0.2); BASO % 0.2 % (0.0-1.0); EOS # 0.1 10^3/uL (0.0-0.5); EOS % 2.0 % (0.0-3.0); LYMPH # 1.5 10^3/uL (1.5-5.0); LYMPH % 29.6 % (24.0-44.0); MONO # 0.5 10^3/uL (0.0-0.8); MONO % 9.7 % (2.0-8.0); NEUTROPHILS # 2.9 10^3/uL (1.5-8.5); NEUTROPHILS % 58.3 % (36.0-66.0); PLATELET COUNT, AUTOMATED 214 10^3/uL (150-450)
[2025-04-04 08:55] LABS: ALT/SGPT 22 U/L (7.0-40); AST/SGOT 21 U/L (<34); CALCIUM LEVEL 9.1 MG/DL (8.5-10.1); CARBON DIOXIDE LEVEL 28 MMOL/L (20-31); CHLORIDE LEVEL 104 MMOL/L (98-107); CHOLESTEROL LEVEL 223 MG/DL (<200); CHOLESTEROL RISK RATIO 3.00 (<5); CREATININE FOR GFR 0.78 MG/DL (0.55-1.30); GLOMERULAR FILTRATION RATE > 90.0 (>60); LDL CHOLESTEROL 135.5 MG/DL (<100); NON-HDL-C 148.9 MG/DL; POTASSIUM SERUM 4.3 MMOL/L (3.5-5.1); SODIUM LEVEL 142 MMOL/L (136-145); TRIGLYCERIDES LEVEL 67 MG/DL (<150)
[2025-04-04 09:02] LABS: ESTIMATED AVERAGE GLUCOSE 94.0 MG/DL (60-110)
[2025-04-04 09:03] LABS: FREE T4 1.28 NG/DL (0.89-1.76)
[2025-04-04 09:04] LABS: TOTAL 25(OH) VITAMIN D 67.2 NG/ML (20.0-100.0)
== END ==
LOC: M LAB 07:53
PROVIDERS: ATTEND Physician Assistant
DX: E55.9 Vitamin D deficiency, unspecified (principal); Z13.220 Encounter for screening for lipoid disorders; Z13.29 Encounter for screening for other suspected endocrine disorder